=== PATIENT | female | born 1980 | race Caucasian/White ===

== ENCOUNTER 2017-07-10 12:39 | Inpatient (IN) | payer OTHER ==
[2017-07-10 12:52] VITALS: BMI 30.6
[2017-07-10 13:20] LABS: RBC URINE 2 /hpf (0-3); URINE BILIRUBIN NEGATIVE (NEGATIVE); URINE BLOOD NEGATIVE (NEGATIVE); URINE COLOR Yellow (YELLOW); URINE GLUCOSE (UA) NORMAL (Normal); URINE KETONE NEGATIVE (NEGATIVE); URINE LEUKOCYTE ESTERASE NEG Leu/uL (Negative); URINE PROTEIN NEGATIVE (NEGATIVE); URINE UROBILINOGEN NORMAL mg/dL (0.2-1.0); WBC URINE < 1 /hpf (0-5)
[2017-07-10] MEDS: Lactated Ringer's 1,000 ML IV SCH (13:40)
[2017-07-10] MEDS ORDERED: Betamethasone Soluspan 30 mg/5mL Inj Susp IM ONE (14:30)
[2017-07-10 14:38] LABS: BASO % 0.3 % (0.0-2.0); EOS # 0.1 K/uL (0.0-0.7); EOS % 1.5 % (0.0-4.0); HEMATOCRIT 34.1 % (34.0-47.0); LYMPH # 1.6 K/uL (1.0-4.3); LYMPH % 17.6 % (20.0-40.0); MEAN CELL VOLUME 80.7 fL (81.0-99.0); MEAN CORPUSCULAR HEMOGLOBIN 26.2 pg (27.0-31.0); MEAN CORPUSCULAR HGB CONC 32.5 g/dL (33.0-37.0); MEAN PLATELET VOLUME 8.8 fL (7.2-11.7); MONO # 0.9 K/uL (0.0-0.8); MONO % 10.3 % (0.0-10.0); RED CELL DISTRIBUTION WIDTH 14.8 % (11.5-14.5); WHITE BLOOD COUNT 9.1 K/uL (4.8-10.8)
[2017-07-10 14:47] LABS: INR 0.9
[2017-07-10 16:03] LABS: ALB/GLOB RATIO 1.3 (1.0-2.1); ALKALINE PHOSPHATASE 117 U/L (38-126); ALT/SGPT 19 U/L (9-52); AST/SGOT 12 U/L (14-36); BILIRUBIN,TOTAL 0.6 mg/dL (0.2-1.3); BLOOD UREA NITROGEN 8 mg/dL (7-17); CALCIUM 8.8 mg/dl (8.6-10.4); CARBON DIOXIDE 19 mmol/L (22-30); CHLORIDE 103 mmol/L (98-107); GFR AFRICAN-AMERICAN > 60; GLUCOSE,RANDOM 69 mg/dL (65-105); POTASSIUM 4.1 mmol/L (3.6-5.2); SODIUM 132 mmol/L (132-148); TOTAL PROTEIN 7.2 g/dL (6.3-8.3); URIC ACID 5.1 mg/dL (2.2-7.5)
[2017-07-11] MEDS ORDERED: Betamethasone Soluspan 30 mg/5mL Inj Susp IM ONE (03:10)
[2017-07-11] MEDS: Lactated Ringer's 1,000 ML IV SCH (03:14)
[2017-07-11] MEDS ORDERED: Oxymetazoline 0.05% Nasal Spray (30 ml) NS PRN (11:45)
[2017-07-11] MEDS ORDERED: Nalbuphine 20 mg/ml Inj (1 ml) IVP ONE (13:17)
[2017-07-11] MEDS ORDERED: Bupivacaine 0.125%/FentaNYL 200 ML EPI ONE (17:28)
[2017-07-11] MEDS ORDERED: Oxytocin 30 UNIT 30 UNITS/500 ML BAG IV SCH ×2 (18:00→19:00)
[2017-07-11] MEDS ORDERED: Oxytocin 30 UNIT 30 UNITS/500 ML BAG IV ONE (18:32)
--- NOTE | 2017-07-11 21:50 | OBHP ---
Datetime: 07/11/2017 17:20 FHR - Baseline A Provider: 130 Contraction Comments Provider: q2-3 min Vital Signs Provider: Reviewed NICHD Variability Prov Fetus A: Moderate 6-25bpm NICHD Accel Fetus A IP Provider: 15X15 FHR Category Provider Fetus A: Category I Dilatation, Provider: 2-3 Effacement, Provider: 50-60 Station, Provider: -2 Datetime: 07/11/2017 09:20 NICHD Decel Fetus A IP Provider: None Datetime: 07/10/2017 13:05 IP Adm Impression: Term, intrauterine IP Chief Complaint Other: Abdominal/back pain IP Admit Plan: Observation/Evaluation Admit Comment, IP Provider: Patient is a 36 year old at 36w6d LOUIE 08/01/17 by LMP presents t o L+D for abdominal pain and back pain that started 2 days ago. Pain is diffuse in nature and intermi ttent. Patient also complaining of cough and chest congestion. Also reports having dysuria with incre ased urinary frequency. Endorses +FM, denies VB, LOF, CTX. Issues: Chronic HTN on Aldomet Hx of Previous stillbirth OB Hx: 1. 2006 at term, stillborn 2. Current RESEARCH AND DEVELOPMENT DIRECTOR Hx: LMP 10/25/16 12 x regular x 3 days Denies hx of ovarian cysts, fibroids Denies hx of STDs Allergies: NKDA Medications: Aldomet 250mg daily, ASA 81 daily, PNV Medical Hx: Chronic HTN Surgical Hx: Denies Social Hx: Denies alcohol, tobacco, drug use; lives with Family Hx: Mother - Heart failure, ; Father - asthma PE: See above A/P: 38 year old at 36w6d with chronic HTN on aldomet, previous stillbirth 1. Admit to L+D 2. Category I tracing 3. Labs - CBC, CMP, T+S, UA, RPR, HIV, LDH, Uric acid, Coags 4. Celestone ordered 5. Plan d/w attending Lesli Marin DO PGY-1. Pt seen and examined with Resident and agrees with the above Comments, ACOG Physical Exam: VSS Gen: AAOx3, uncomfortable HEENT: Normacephalic, Uvula midline, no erythema or exudates appreciated CV: RRR Lungs: CTA B/L Abd: Soft, gravid Ext: No clubbing, cyanosis, edema SVE: Fingertip/30/-3 EFM: 145, mod variability, +accels, - decels TOCO: irritability Bedside sono: EFW 2749g, CHERELLE 13.6 IP Chief Complaint: Maternal discomfort; Other
--- NOTE | 2017-07-11 21:56 | OBPN ---
Datetime: 07/11/2017 17:20 IP Progress Impression: Normal progression of labor IP Progress Plan: Induction Contraction Comments Provider: q2-3 min FHR - Baseline A Provider: 130 Vital Signs Provider: Reviewed NICHD Accel Fetus A IP Provider: 15X15 FHR Category Provider Fetus A: Category I NICHD Variability Prov Fetus A: Moderate 6-25bpm Dilatation, Provider: 2-3 Effacement, Provider: 50-60 Station, Provider: -2 Datetime: 07/11/2017 13:30 IP Procedures Other: Beyer balloon IP Progress Note Comment: Patient seen and examined at bedside. Patient is feeling cramps in lower a bdomen. Offers no other complaints at this time. Endorses +FM, denies VB, LOF. Cervidil removed. VSS Gen: AAOx3 Abd: Soft, gravid A/P: 36 year old at 37w0d for induction of labor, chronic HTN on aldomet and hx of stillbo rn -Stable, afebrile -CEFM and TOCO -Cervidil removed -Beyer balloon inserted -Nubain and pheneregan x 1 ordered -Will continue to monitor -Plan discussed with attending Lesli Marin DO PGY-1. Pt seen and examined with Resident and I agree with the above. Datetime: 07/11/2017 09:20 IP Progress Impression Other: Chronic HTN, Hx of stillborn NICHD Decel Fetus A IP Provider: None
--- NOTE | 2017-07-11 21:59 | OBPN ---
Datetime: 07/11/2017 17:20 IP Progress Note Comment: Patient seen and examined at bedside. Feeling contractions getting stronge r. Endorses +FM, denies LOF or VB. VSS Gen: AAOx3 Abd: Soft, gravid SVE: 2-3/50-60/-2; saeed balloon in place A/P: 36 year old at 37w0d for induction of labor, chronic HTN on aldomet, hx of stillborn -Stable, afebrile -CEFM and TOCO -Anesthesia notified for epidural -Will start pitocin afterwards -Plan d/w attending Lesli Marin DO PGY-1. Pt seen and examined with resident and I agree with the above.
[2017-07-11] MEDS ORDERED: Sodium Citrate/Citric Acid 15 ml Sol PO ONE (23:50)
[2017-07-11] MEDS ORDERED: cefOXitin IV 2 gm in Dextrose 2 GM/50 ML BAG IVPB ONE (23:50)
--- NOTE | 2017-07-12 00:04 | OBPN ---
Datetime: 07/11/2017 23:56 IP Progress Impression: Non-reassuring heart rate IP Informed Consent Obtain: Section Delivery IP Procedures: Sterile Vag Exam IP Progress Plan: Antibiotic therapy; Deliver- Section FHR - Baseline A Provider: 140 Gestation - Est Wks by US: 37.0 Presentation-Admit: Vertex IP Progress Note Comment: IUP at 37wks in Labor On pitocin for labor augmentation category 2 -3 Tracing with late decelerations Assessment: IUP at 37wks in labor Non reassuring Heart Rate Tracing. Plan: Deliver section. Risks and benefits of the procedure discussed. Consents obtained. Vital Signs Provider: Reviewed NICHD Accel Fetus A IP Provider: 10X10 FHR Category Provider Fetus A: Category II NICHD Variability Prov Fetus A: Moderate 6-25bpm Dilatation, Provider: 4 Effacement, Provider: 60 Station, Provider: -2 NICHD Decel Fetus A IP Provider: Late
[2017-07-12] MEDS ORDERED: Oxytocin 20 units in LR 2,000 ML IV ONE (00:06)
[2017-07-12] MEDS ORDERED: Morphine 1 mg/ml preservative-free Inj(Duramorph) ONE (01:01)
[2017-07-12] MEDS ORDERED: ePHEDrine 50 mg/ml Inj ONE (01:01)
[2017-07-12] MEDS ORDERED: Succinylcholine Chloride 20 mg/ml Syr (5 ml) IV ONE (01:27)
[2017-07-12] MEDS ORDERED: Ketamine 50 mg/ml Inj (10 ml) ONE (01:27)
[2017-07-12] MEDS ORDERED: Rocuronium 10 mg/ml (5 ml) ONE (01:27)
[2017-07-12] MEDS ORDERED: Propofol 10 mg/ml Inj (20 ML) ONE (01:27)
[2017-07-12] MEDS ORDERED: Midazolam 2 MG/2 ML VIAL ONE (01:51)
[2017-07-12] MEDS ORDERED: Neostigmine Methylsulfate 3mg/3ml Syringe IV ONE (02:22)
--- NOTE | 2017-07-12 02:29 | PCM.SURG1 ---
Surgeon's Initial Post Op Note - Surgeon's Notes Surgeon: DR Myrick Bolting Machine Operator: DR Traore Type of Anesthesia: General Endo Anesthesia Administered By: DR Jonny Kenney Pre-Operative Diagnosis: IUP at 37wks in Labor with Non Reassuring Heart Rate Operative Findings: Live Male infant BW 2255gms scores 9 and 9, delivered in the left Occipitoposterior position, clear amniotic fluid and fundal placenta. Normal Looking ovaries and fallopian tubes bilaterally. IVF- 1500mls. EBL- 500mls. urine output-200mls Post-Operative Diagnosis: Same as preop diagnosis Operation Performed: Primary section Specimen/Specimens Removed: Umbilical cord blood Estimated Blood Loss: EBL {In ML}: 500 Blood Products Given: N/A Post-Op Condition: Good Date of Surgery/Procedure: 07/12/17 Time of Surgery/Procedure: 02:30
--- NOTE | 2017-07-12 02:53 | OBDS ---
DELIVERY PERSONNEL Delivery Doctor: Nuria Myrick MD Scrub Nurse: Cassia Rodriguez Infection Control Nurse: Bridgette Membreno RN Anesthesiologist: [place] MATERNAL INFORMATION Delivery Anesthesia: General Medications in Delivery: pitocin 20 units Placenta Cultured: No Maternal Complications: None RN Comments: Primary CS to a live baby boy with 04/24 Provider Comments: UNcomplicated Primary LOw Section , Male with BW of 2255gms 9 and 9. LABOR SUMMARY EDC: 08/01/2017 00:00 No. Babies in Womb: 1 Attempted: No Labor Anesthesia: Epidural LABOR INFORMATION Reason for Induction: Other Onset of Labor: 07/11/2017 15:00 Cervical Ripening Agents: Cervidil; Beyer Balloon; Cytotec @ Other Ripening Agents: PLACED BY DR. Dang Oxytocin: Augmentation Group B Beta Strep: Negative Steroids Given: Full Course; < 24 Hours before Delivery MEMBRANES Membranes Rupture Method: Artificial Rupture of Membranes: 07/11/2017 21:34 Length of Rupture (hrs): 4.12 Amniotic Fluid Color: Clear Amniotic Fluid Amount: Moderate Amniotic Fluid Odor: Normal STAGES OF LABOR Stage 3 hrs: 0 Stage 3 min: 1 Total Time in Labor hrs: 10 Total Time in Labor min: 42 CSECTION DELIVERY Primary Indication: Nonreassuring Status CSection Urgency: N/A CSection Incidence: Primary Labor: Labor Elective: Nonelective CSection Incision: Lower Uterine Transverse Uterine Closure: Double-layer closure BABY A INFORMATION Delivery Date/Time: 07/12/2017 01:41 Method of Delivery: Born in Route : No : N/A Forceps: N/A Vacuum Extraction: N/A Shoulder Dystocia : No SHOULDER DYSTOCIA BABY A Delivery Date/Time: 07/12/2017 01:41 PRESENTATION/POSITION BABY A Presentation: Cephalic Cephalic Presentation: Vertex Vertex Position: Left Occipital Anterior Breech Presentation: N/A PLACENTA INFORMATION BABY A Placenta Delivery Time : 07/12/2017 01:42 Placenta Method of Delivery: Manual Removal Placenta Status: Delivered SCORES BABY A Heart Rate 1 min: >100 bpm Resp Effort 1 min: Good Cry Reflex Irritability 1 min: Cough or Sneeze or Pulls Away Muscle Tone 1 min: Active Motion Color 1 min: Body [place], Extremities Blue SCORE 1 MIN: 9 Heart Rate 5 min: >100 bpm Resp Effort 5 min: Good Cry Reflex Irritability 5 min: Cough or Sneeze or Pulls Away Muscle Tone 5 min: Active Motion Color 5 min: Body [place], Extremities Blue SCORE 5 MIN: 9 INFANT INFORMATION BABY A Gestational Age at Delivery: 37.0 Gestational Status: Term Outcome : Liveborn Condition : Stable Infant Sex: Male IDENTIFICATION/MEDS BABY A ID Band Number: [id number] ID Band Location: Left Leg; Left Arm Sensor Applied: Yes Sensor Number: [id number] Sensor Location : Cord Clamp WEIGHT/LENGTH BABY A Infant Birthweight (gms): 2255 Weight (lb): 5 Weight (oz): 0 Length Inches: 17.25 Infant Length cms: 43.8 CORD INFORMATION BABY A No. Cord Vessels: 3 Nuchal Cord : N/A Cord Blood Taken: Yes Infant Suction: Mouth ASSESSMENT BABY A Complications: None Physical Findings at Delivery: Within Normal Limits Infant Respirations: Appears Normal Batch Plant Operator/ALS Called : No Infant Care By: Dr. Donato Transferred To: [facility]
--- NOTE | 2017-07-12 04:59 | OP ---
PROCEDURE DATE: 07/12/2017 PREOPERATIVE DIAGNOSIS: Intrauterine at 37 weeks in labor with nonreassuring heart tracing. POSTOPERATIVE DIAGNOSIS: Intrauterine at 37 weeks in labor with nonreassuring heart tracing. PROCEDURE: Primary low-transverse section performed on 07/12/2017. SURGEON: Ezequiel Myrick MD LINOTYPIST: Dr. Sal Traore MD. Assistance to this procedure was needed for exposure of tissues and help in the conduct of the surgery. The personnel security assistant remained with the surgery throughout its entire length. TYPE OF ANESTHESIA: General endotracheal anesthesia administered by Dr. Artie Figueroa. OPERATIVE FINDINGS: One live male with weight of 2255 g. Apgars scores of 9 first and five minutes respectively. Delivered in the left occipital posterior position with clear amniotic fluid and fundal placenta. The uterus as well as both ovaries and fallopian tubes were normal bilaterally. IV FLUID INTAKE: 1500 mL. ESTIMATED BLOOD LOSS: 500 mL. URINE OUTPUT: 200 mL of clear urine. COMPLICATIONS: There were no complications. DESCRIPTION OF PROCEDURE: After obtaining informed consent, the patient was sent to the OR with IV running. The patient was sat on the OR table and after failure of attempts to put in spinal anesthesia, the patient was put in a supine position and prepped and draped in the sterile fashion. The patient was then put to sleep by general anesthesia. A Pfannenstiel skin incision was made about 2.5 cm from the pubic symphysis using a scalpel and this incision was extended through the subcutaneous tissues through the rectus fascia which was also incised in the transverse fashion. The incision was extended to both sides with blunt dissection and sharp dissection. Then rectus muscle was lifted off the underlying rectus muscles both superiorly and inferiorly by means of blunt dissection and sharp dissection. The rectus muscle was in the midline to expose the peritoneum which was tented between two Gris clamps and sharply entered with good visualization of the bladder. Once the abdominal cavity was entered, the vesicouterine fold of peritoneum was identified. This was incised in a transverse fashion and retracted inferiorly to expose the lower uterine segment. A low-transverse incision was made by means of a scalpel. This incision was sent through the myometrial layer, so the amniotic membranes were identified. The incision was extended to both sides in a blunt fashion. The amniotic membranes were ruptured with pickup forceps and the baby which was positioned in the left occiput posterior position was delivered. The mouth and nostrils were bulb suctioned and the three-vessel cord was clamped and cut. The baby was given to the nurse. Cord blood for analysis was also obtained. The placenta was manually removed from the uterine cavity and the uterus was brought out of the abdominal cavity. The uterine cavity was cleaned of all debris using dry laparotomy pads after which attention was turned to the uterine incision. The uterine incision was closed in two layers with Vicryl #0. The first layer in a running locked fashion and the second layer in a running fashion imbricating the first layer. This was performed until complete hemostasis was achieved. Irrigation of the pelvis with warm normal saline was performed at this point and suctioned off and cleaned using dry laparotomy pad. Once the procedure had been completed, all instruments were taken from the abdomen including laparotomy pads and attention was turned on to the anterior abdominal wall which was closed in layers with 2-0 Vicryl for the peritoneum and the rectus muscles. The rectus fascia was reapproximated using Vicryl #0. The subcutaneous tissue was brought together by means of #2-0 plain catgut. The skin was closed in a subcuticular fashion using #4 Vicryl. All counts of instruments, laparotomy pads and needles used were correct x3 and the patient was sent to the recovery room awake and in stable condition Ezequiel Myrick MD LAURYN
[2017-07-12] MEDS: Lactated Ringer's 1,000 ML IV SCH (06:20)
[2017-07-12] MEDS: Oxycodone/Acetaminophen 5/325 mg Tab PO PRN ×3 (10:12→21:53)
[2017-07-12] MEDS: cefOXitin IV 2 gm in Dextrose 2 GM/50 ML BAG IVPB SCH ×2 (10:12→17:50)
[2017-07-13] MEDS: cefOXitin IV 2 gm in Dextrose 2 GM/50 ML BAG IVPB SCH (02:00)
[2017-07-13] MEDS ORDERED: Bisacodyl 5mg EC Tab PO ONE ×2 (02:36→06:30)
[2017-07-13 07:20] LABS: EOS % 0.3 % (0.0-4.0); MEAN CELL VOLUME 80.1 fL (81.0-99.0); MONO # 1.8 K/uL (0.0-0.8); RED CELL DISTRIBUTION WIDTH 14.9 % (11.5-14.5)
[2017-07-13 07:29] LABS: BASO % 0.2 % (0.0-2.0); LYMPH # 2.4 K/uL (1.0-4.3); LYMPH % 16.5 % (20.0-40.0); MEAN CORPUSCULAR HEMOGLOBIN 26.3 pg (27.0-31.0); MEAN CORPUSCULAR HGB CONC 32.8 g/dL (33.0-37.0); MEAN PLATELET VOLUME 8.4 fL (7.2-11.7); MONO % 12.3 % (0.0-10.0); NRBC % 0.1 % (0.0-2.0)
[2017-07-13 07:31] LABS: WHITE BLOOD COUNT 14.6 K/uL (4.8-10.8)
[2017-07-13] MEDS: Oxycodone/Acetaminophen 5/325 mg Tab PO PRN ×2 (09:19→17:23)
[2017-07-13] MEDS: guaiFENesin 100 mg/5 ml Syrup UD PO PRN ×2 (13:11→20:29)
[2017-07-13] MEDS ORDERED: Oxycodone/Acetaminophen 5/325 mg Tab PO PRN (14:53)
[2017-07-14] MEDS: Oxycodone/Acetaminophen 5/325 mg Tab PO PRN ×2 (05:48→21:01)
[2017-07-14] MEDS: guaiFENesin 100 mg/5 ml Syrup UD PO PRN ×3 (09:56→23:05)
[2017-07-14 22:23] VITALS: RESP 20
[2017-07-15] MEDS ORDERED: Influenza Vaccine 60 mcg/0.5 mL SYR (4YR UP) IM ONE (08:45)
[2017-07-15] MEDS: guaiFENesin 100 mg/5 ml Syrup UD PO PRN (10:08)
--- NOTE | 2017-07-15 12:24 | OBDCSUM ---
Datetime: 07/15/2017 08:12 Discharged to, Provider: Home Follow up at, Provider: donna [place] Instr Activity: Normal activity Disch Instr Diet: Regular Discharge Instructions, Provider: Routine instructions given Discharge Diagnosis, Provider: Term Delivered Discharge Time: 07/15/2017 10:55 Follow up in weeks, Provider: 07-19-17 Disch Referrals: None Contraception discussed, Prov: Yes Disch Activity Restrictions: No lifting; Minimize stair-climbing; No sexual activity; Nothing in vag lauro - [place], tampons, douche Discharge Comment, Provider: S/P Primary Section, Clinically Stable Discharge Diagnosis Prov Other: S/P Primary Section, Clinically Stable
--- NOTE | 2017-07-15 12:24 | OBPPN ---
Datetime: 07/15/2017 07:46 PP Pain Prov: Within normal limits PP Nausea Prov: Denies PP Flatus Prov: Yes PP BM Prov: Yes PP Impression Prov: Normal progression PP Plan Prov: Continue present management; Discharge PP Progress Note Prov: Patient seen and examined at bedside. Per nursing no acute events overnight. Patient is doing well, pain is controlled. Lochia is mild. Ambulating and tolerating diet. Passing fl atus and BM. Urinating without difficulty. Breast pumping, baby was transferred to [facility]. Denies headaches, dizziness, cp, palpitations, sob, urinary symptoms. VS: 130/88 90 97.9 Gen: AAOx3 CV: RRR Lungs: CTA B/L Abd: soft, appropriately tender, fundus firm below umbilicus, incision c/d/i with suture, abd bind er in place Ext: No clubbing, cyanosis, edema; no calf tenderness Labs: 9.1>11.1/34.1<278 14.6>8.9/27.0<254 B positive Rubella immune A/P: 36 year old at 37w1d s/p PLTCD 2/2 NRFHT POD#3 -Stable, afebrile -Pain control - tylenol and percocet prn -Chronic HTN - continue aldomet and ASA -Acute blood loss anemia - continue ferrous sulfate BID -Encourage ambulation and hydration -Encourage breast feeding -Continue routine care -D/C home today - pelvic rest x 6 weeks, f/u with office in 1 week for BP check and incision check -Plan d/w attending Lesli Marin DO PGY-1 Pt was d/w the Resident and I Agree with above Vital Signs Provider PP: Reviewed; Within Normal Limits
[2017-07-15 16:07] VITALS: BP 129/87; PULSE 89; TEMP 98.6; O2SAT 99
== END 2017-07-15 10:55 | disposition home or self-care (01) | DRG 765 ==
LOC: C.EROB 12:39 → C.4D 13:27 → C.4M 07-12 05:26
PROVIDERS: ADMIT Obstetrics & Gynecology; ATTEND Obstetrics & Gynecology
PROC: 10D00Z1 Extraction of Products of Conception, Low, Open Approach (ICD-10-PCS; principal; 2017-07-12)
DX: O16.4 Unspecified maternal hypertension, complicating childbirth (principal); D62 Acute posthemorrhagic anemia; Z37.0 Single live birth; O99.02 Anemia complicating childbirth; O76 Abnormality in fetal heart rate and rhythm complicating labor and delivery; Z3A.37 37 weeks gestation of pregnancy; Z82.49 Family history of ischemic heart disease and other diseases of the circulatory system; Z82.5 Family history of asthma and other chronic lower respiratory diseases